=== PATIENT | male | born 1970 | race Caucasian/White ===

== ENCOUNTER 2017-08-26 15:45 | Outpatient (CLI) | payer OTHER | END 2017-08-26 15:46 | disposition home or self-care (01) | LOC: SC 15:45 | PROVIDERS: ATTEND Internal Medicine Pulmonary Disease | DX: G47.30 Sleep apnea, unspecified (principal); G47.10 Hypersomnia, unspecified; R06.83 Snoring; G47.8 Other sleep disorders | CPT/HCPCS: 99203; 99212 ==

== ENCOUNTER 2018-01-02 13:49 | Outpatient (CLI) | payer OTHER | END 2018-01-02 13:50 | disposition home or self-care (01) | LOC: SC 13:49 | PROVIDERS: ATTEND Nurse Practitioner Family | DX: G47.33 Obstructive sleep apnea (adult) (pediatric) (principal) | CPT/HCPCS: 99212; 99214 ==

== ENCOUNTER 2019-08-10 07:56 | Emergency (ER) | payer OTHER ==
--- NOTE | 2019-08-10 08:13 | ED Physician Documentation ---
PD HPI ABD PAIN - Stated complaint Stated Complaint: ABD PX - Chief complaint Chief Complaint: Abd Pain - History obtained from History obtained from: Patient - History of Present Illness Timing - onset: How many hours ago (2), Today Timing - duration: Hours (2) Timing - details: Abrupt onset (awakened from sleep this morning with upper abd pain, center to left and nausea.), Still present Quality: Aching, Sharp, Pain Location: Epigastric, LUQ Radiation: Upper back Improved by: No: Laying still Worsened by: Palpation. No: Moving, Breathing Associated symptoms: Nausea. No: Fever, Vomiting, Diarrhea, Dysuria Similar symptoms before: Has not had sx before Recently seen: Not recently seen Review of Systems Constitutional: denies: Fever, Chills, Myalgias Nose: denies: Rhinorrhea / runny nose, Congestion Throat: denies: Sore throat Cardiac: denies: Chest pain / pressure Respiratory: denies: Dyspnea, Cough GI: reports: Abdominal Pain, Nausea. denies: Vomiting, Constipation, Diarrhea : denies: Dysuria, Frequency Skin: denies: Rash Neurologic: reports: Generalized weakness. denies: Focal weakness, Numbness PD PAST MEDICAL HISTORY - Past Medical History Past Medical History: No - Past Surgical History Past Surgical History: No - Present Medications Home Medications: Ambulatory Orders Medication Instructions Recorded Confirmed Famotidine 20 mg PO DAILY #15 tablet 08/10/19 Hydrocodone/Acetaminophen [[place] 1 each PO Q6H PRN #15 tablet 08/10/19 5-325 Tablet] Ondansetron Odt [Zofran] 4 mg TL Q6H PRN #10 tablet 08/10/19 - Allergies Allergies/Adverse Reactions: Allergies Allergy/AdvReac Type Severity Reaction Status Date / Time acetaminophen [From Percocet] AdvReac Nausea Verified 08/10/19 08:05 oxycodone [From Percocet] AdvReac Nausea Verified 08/10/19 08:05 PD ED PE NORMAL - Vitals Vital signs reviewed: Yes - General General: Alert and oriented X 3, No acute distress, Well developed/nourished - HEENT HEENT: Pharynx benign - Neck Neck: Supple, no meningeal sign, No adenopathy - Cardiac Cardiac: RRR, No murmur - Respiratory Respiratory: Clear bilaterally - Abdomen Abdomen: Normal bowel sounds, Soft, Non distended, No organomegaly, Other (tender epigastric with guarding. Some tender both RUQ and LUQ. Lower abd not tender. ) - Male Male : Deferred - Rectal Rectal: Deferred - Back Back: No CVA TTP - Derm Derm: Normal color - Extremities Extremities: No tenderness to palpate, Normal ROM s pain - Neuro Neuro: Alert and oriented X 3, No motor deficit, Normal speech Results - Vitals Vitals: Vital Signs - 24 hr 08/10/19 08/10/19 08/10/19 08:03 08:28 09:11 Temperature 36.7 C 36.7 C Heart Rate 62 51 L 51 L Respiratory 20 18 16 Rate Blood Pressure 146/89 H 144/87 H 129/81 H O2 Saturation 98 97 96 08/10/19 08/10/19 11:19 12:18 Temperature Heart Rate 52 L 57 L Respiratory 14 13 Rate Blood Pressure 118/71 124/84 H O2 Saturation 98 98 Oxygen O2 Source Room air - Labs Labs: Laboratory Tests 08/10/19 08/10/19 08/10/19 08:22 08:48 08:48 WBC 9.7 RBC 5.52 Hgb 15.4 Hct 46.1 MCV 83.5 MCH 27.9 MCHC 33.4 RDW 13.3 Plt Count 282 MPV 8.7 Neut # (Auto) 6.6 Lymph # (Auto) 1.9 [place] # (Auto) 0.9 Eos # (Auto) 0.3 Baso # (Auto) 0.0 Absolute Nucleated RBC 0.00 Nucleated RBC % 0.0 Sodium 141 Potassium 3.9 Chloride 106 Carbon Dioxide 24 Anion Gap 11.0 BUN 18 Creatinine 0.8 Estimated GFR (MDRD) 103 Glucose 111 H Calcium 9.4 Total Bilirubin 0.9 AST 19 ALT 34 Alkaline Phosphatase 45 Troponin I High Sens Total Protein 8.1 Albumin 4.2 Globulin 3.9 Albumin/Globulin Ratio 1.1 Lipase 39 Urine Color YELLOW Urine Clarity HAZY Urine pH 5.5 Ur Specific [place] >=1.030 H Urine Protein NEGATIVE Urine Glucose (UA) NEGATIVE Urine Ketones NEGATIVE Urine Occult Blood TRACE-INTA Urine Nitrite NEGATIVE Urine Bilirubin NEGATIVE Urine Urobilinogen 0.2 (NORMAL) Ur Leukocyte Esterase NEGATIVE Urine RBC 0-5 Urine WBC 0-3 Ur Squamous Epith Cells MANY Squamous H Urine Crystals 6-10 Calcium Oxalate Urine Bacteria Moderate H Urine Casts 3-5 Hyaline Casts Urine Mucus Marked Strands Ur Microscopic Review INDICATED Urine Culture Comments NOT INDICATED 08/10/19 08:48 WBC RBC Hgb Hct MCV MCH MCHC RDW Plt Count MPV Neut # (Auto) Lymph # (Auto) [place] # (Auto) Eos # (Auto) Baso # (Auto) Absolute Nucleated RBC Nucleated RBC % Sodium Potassium Chloride Carbon Dioxide Anion Gap BUN Creatinine Estimated GFR (MDRD) Glucose Calcium Total Bilirubin AST ALT Alkaline Phosphatase Troponin I High Sens 6.3 Total Protein Albumin Globulin Albumin/Globulin Ratio Lipase Urine Color Urine Clarity Urine pH Ur Specific [place] Urine Protein Urine Glucose (UA) Urine Ketones Urine Occult Blood Urine Nitrite Urine Bilirubin Urine Urobilinogen Ur Leukocyte Esterase Urine RBC Urine WBC Ur Squamous Epith Cells Urine Crystals Urine Bacteria Urine Casts Urine Mucus Ur Microscopic Review Urine Culture Comments - Rads (name of study) RUQ abd U/S Radiology: Prelim report reviewed (normal), See rad report abd CT Radiology: Prelim report reviewed (no acute process), See rad report PD MEDICAL DECISION MAKING - ED course Complexity details: reviewed results, re-evaluated patient (he is feeling better with IV fluids and meds. ), considered differential (initially seemed gallbladder, but labs and U/S normal. Still could be spasm. However not clear so got CT scan as well, which was normal. ), d/w patient Departure - Departure Disposition: 01 Home, Self Care Clinical Impression: Upper abdominal pain of unknown etiology Condition: Stable Record reviewed to determine appropriate education?: Yes Instructions: ED Abdominal Pain Unkn Cause Follow-Up: Connor Burr MD [Primary Care Provider] - Prescriptions: Famotidine 20 mg PO DAILY #15 tablet Hydrocodone/Acetaminophen [[place] 5-325 Tablet] 1 each PO Q6H PRN #15 tablet PRN Reason: Pain Ondansetron Odt [Zofran] 4 mg TL Q6H PRN #10 tablet PRN Reason: Nausea / Vomiting Comments: There is no localized or acute process identified on your testing today. This may been some irritation of the stomach and so some acid reducing medicine would be appropriate for a week or 2. May have been a viral type illness and just transient for a day or so. See how you feel over the next day. Tylenol if needed for pains or fevers. Ondansetron if needed for nausea. Add hydrocodone if needed for worse pain. Recheck if not improved completely over the next couple of days and return sooner if worsening. Discharge Date/Time: 08/10/19 12:30
[2019-08-10] MEDS ORDERED: ONDANSETRON 4 MG/2 ML VIAL IVP STA (08:25)
[2019-08-10] MEDS ORDERED: HYDROmorphone 1 MG/ML CARPUJECT IVP STA (08:25)
[2019-08-10] MEDS ORDERED: KETOROLAC 15 MG/ML VIAL IVP STA (08:25)
[2019-08-10] MEDS ORDERED: SODIUM CHLORIDE 0.9% 1,000 ML IV STA (08:25)
[2019-08-10 08:33] LABS: BILIRUBIN,URINE NEGATIVE (NEGATIVE); GLUCOSE, URINE (UA) NEGATIVE (NEGATIVE); KETONES,URINE (UA) NEGATIVE (NEGATIVE); LEUKOCYTE ESTERASE, URINE NEGATIVE (NEGATIVE); NITRITE,URINE NEGATIVE (NEGATIVE); OCCULT BLOOD,URINE TRACE-INTA (NEGATIVE); PH,URINE 5.5 PH (5.0-7.5); PROTEIN,URINE NEGATIVE (NEGATIVE); UROBILINOGEN,URINE 0.2 (NORMAL) E.U./dL (NORMAL)
[2019-08-10 08:41] LABS: CLARITY,URINE HAZY (CLEAR)
[2019-08-10 08:42] LABS: BACTERIA,URINE Moderate /HPF (None Seen); CASTS, URINE 3-5 Hyaline Casts /LPF; CRYSTALS,URINE 6-10 Calcium Oxalate /LPF; MUCUS,URINE Marked Strands; RBC,URINE 0-5 /HPF (0-5); SQUAMOUS EPITHELIAL CELL,UR MANY Squamous (<= Few)
[2019-08-10 08:58] LABS: BASOPHILS % (AUTO) 0.4 %; EOSINOPHILS # (AUTO) 0.3 10^3/uL (0.0-0.7); EOSINOPHILS % (AUTO) 2.6 %; HGB - HEMOGLOBIN 15.4 g/dL (14.0-18.0); LYMPHOCYTES # (AUTO) 1.9 10^3/uL (1.5-3.5); LYMPHOCYTES % (AUTO) 19.5 %; MEAN CORPUSCULAR HEMOGLOBIN 27.9 pg (27.0-31.0); MEAN CORPUSCULAR HGB CONC 33.4 g/dL (32.0-36.0); MEAN CORPUSCULAR VOLUME 83.5 fL (80.0-94.0); MEAN PLATELET VOLUME 8.7 fL (7.4-11.4); MONOCYTES # (AUTO) 0.9 10^3/uL (0.0-1.0); MONOCYTES % (AUTO) 8.9 %; NEUTROPHILS # (AUTO) 6.6 10^3/uL (1.5-6.6); NEUTROPHILS % (AUTO) 68.1 %; PLT - PLATELET COUNT 282 10^3/uL (130-450); RED BLOOD COUNT 5.52 10^6/uL (4.70-6.10); RED CELL DISTRIBUTION WIDTH 13.3 % (12.0-15.0); WHITE BLOOD COUNT 9.7 x10^3/uL (4.8-10.8)
[2019-08-10 09:19] LABS: ALBUMIN 4.2 g/dL (3.2-5.5); ALBUMIN/GLOBULIN RATIO 1.1 (1.0-2.2); BILIRUBIN,TOTAL 0.9 mg/dL (0.2-1.0); CALCIUM 9.4 mg/dL (8.5-10.3); CREATININE 0.8 mg/dL (0.6-1.2); TOTAL PROTEIN 8.1 g/dL (6.7-8.2)
--- NOTE | 2019-08-10 10:14 | Ultrasound Report ---
Reason: abrupt upper pain 6 am Procedure Date: 08/10/2019 Accession Number: [id number] / [id number] Procedure: US - Abdomen Limited CPT Code: FULL RESULT: EXAM: ABDOMEN ULTRASOUND LIMITED, RUQ EXAM DATE: 08/10/2019 09:50 AM. CLINICAL HISTORY: Abrupt upper pain 6 am. COMPARISON: None. TECHNIQUE: Real-time scanning was performed with static images obtained. FINDINGS: Liver: The parenchyma is echogenic diffusely. No definite focal masses are identified, but evaluation is limited secondary to the echogenicity. Enlarged right liver lobe measuring 20.9 cm. Main portal vein flow: Hepatopetal. Gallbladder: Normal. No stones, wall thickening, or sonographic Yung's sign. Biliary System: CBD measures 3 mm. No intrahepatic or extrahepatic ductal dilatation. Other: Right kidney measured 11.4 cm longitudinally and appeared grossly unremarkable. Evaluation limited by available sonographic windows and patient body habitus. IMPRESSION: 1. Enlarged, fatty infiltrated liver. 2. No evidence for cholelithiasis or cholecystitis. RADIA
[2019-08-10] MEDS ORDERED: MAG HYDROX/AL HYDROX/SIMETH 30 ML UDC PO STA (10:15)
--- NOTE | 2019-08-10 10:53 | CT Report ---
Reason: right abd to back pain, onset 6 pm this morning Procedure Date: 08/10/2019 Accession Number: [id number] / [id number] Procedure: CT - Abdomen/Pelvis WO CPT Code: FULL RESULT: EXAM: CT ABDOMEN AND PELVIS EXAM DATE: 08/10/2019 10:35 AM. CLINICAL HISTORY: Right abd to back pain, onset 6 pm this morning. COMPARISONS: None. TECHNIQUE: Routine helical CT imaging was performed through the abdomen and pelvis. IV contrast: None. Enteric contrast: No. Reconstructions: Coronal and sagittal. In accordance with CT protocol optimization, one or more of the following dose reduction techniques were utilized for this exam: automated exposure control, adjustment of mA and/or KV based on patient size, or use of iterative reconstructive technique. FINDINGS: Lung Bases: 6 mm nodule right middle lobe (3, 2) Liver: Fatty infiltrated Gallbladder/Bile Ducts: Unremarkable. Spleen: Normal. Pancreas: Normal. Adrenal Glands: Normal. Kidneys: Right kidney superior pole subcentimeter density too small to characterize. No renal calcifications. No hydronephrosis. Peritoneal Cavity/Bowel: Small fat-containing umbilical hernia. Diverticulosis. No free fluid, free air or adenopathy. No masses or acute inflammatory process. The appendix is well visualized and normal. Pelvic Organs: Normal. The bladder and visualized pelvic organs are within normal limits. Vasculature: No aneurysms or other significant abnormality. Bones: No significant abnormality. Other: None. IMPRESSION: 1. No renal calcifications no hydronephrosis. 2. Right kidney subcentimeter density too small to characterize. 3. 6 mm nodule right middle lobe. Chest CT for evaluation. 4. Fatty infiltrated liver. 5. Diverticulosis. RADIA
[2019-08-10 12:19] VITALS: BP 124/84
== END 2019-08-10 12:30 | disposition home or self-care (01) ==
LOC: ED 07:56
DX: R10.10 Upper abdominal pain, unspecified (principal)
CPT/HCPCS: 36415; 74176; 76705; 80053; 81001; 83690; 84484; 85025; 93005; 96361; 96374; 99283; 99284; A9270; J1170; 81003; 87086

== ENCOUNTER 2019-09-04 05:26 | Emergency (ER) | payer OTHER ==
[2019-09-04 05:48] LABS: BASOPHILS # (AUTO) 0.1 10^3/uL (0.0-0.1); BASOPHILS % (AUTO) 0.6 %; EOSINOPHILS # (AUTO) 0.4 10^3/uL (0.0-0.7); EOSINOPHILS % (AUTO) 3.7 %; HGB - HEMOGLOBIN 15.2 g/dL (14.0-18.0); LYMPHOCYTES # (AUTO) 3.2 10^3/uL (1.5-3.5); LYMPHOCYTES % (AUTO) 29.3 %; MEAN CORPUSCULAR HEMOGLOBIN 27.7 pg (27.0-31.0); MEAN CORPUSCULAR VOLUME 83.8 fL (80.0-94.0); MEAN PLATELET VOLUME 8.5 fL (7.4-11.4); MONOCYTES # (AUTO) 1.1 10^3/uL (0.0-1.0); MONOCYTES % (AUTO) 9.8 %; NEUTROPHILS # (AUTO) 6.1 10^3/uL (1.5-6.6); NEUTROPHILS % (AUTO) 55.8 %; PLT - PLATELET COUNT 333 10^3/uL (130-450); RED BLOOD COUNT 5.49 10^6/uL (4.70-6.10); RED CELL DISTRIBUTION WIDTH 13.2 % (12.0-15.0); WHITE BLOOD COUNT 10.9 x10^3/uL (4.8-10.8)
--- NOTE | 2019-09-04 05:54 | ED Physician Documentation ---
PD HPI ABD PAIN - Stated complaint Stated Complaint: ABD PX - Chief complaint Chief Complaint: Abd Pain - History obtained from History obtained from: Patient - History of Present Illness Timing - onset: Enter time (04:30), Today Timing - details: Abrupt onset Pain level max: 10 Pain level now: 10 Quality: Pain Location: RUQ, Epigastric Radiation: Lower back, Right flank Improved by: Other (nothing) Worsened by: Other (no exacerbating factors) Associated symptoms: Nausea (mild). No: Fever, Vomiting, Diarrhea, Constipation Similar symptoms before: No diagnosis Recently seen: Emergency Dept - Additional information Additional information: T+R from this ED 08/10 for same symptoms; w/u at that time did not reveal etiology of his pain (blood tests, UA, RUQ US, and CT A/P). His pain was controlled prior to d/c, and patient says he only needed to take 2 tablets of the prescribed hydrocodone, as the pain resolved and did not recur until 4:30 this morning. He had scheduled f/u with PMD but appointment was cancelled due to family emergency w/ PMD. Review of Systems Constitutional: reports: Reviewed and negative Cardiac: reports: Reviewed and negative Respiratory: reports: Reviewed and negative GI: reports: Abdominal Pain, Nausea. denies: Vomiting, Constipation, Diarrhea : denies: Dysuria, Frequency Skin: denies: Rash PD PAST MEDICAL HISTORY - Past Medical History Past Medical History: Yes GI: GERD - Past Surgical History Past Surgical History: Yes General: Hiatal hernia repair - Allergies Allergies/Adverse Reactions: Allergies Allergy/AdvReac Type Severity Reaction Status Date / Time acetaminophen [From Percocet] AdvReac Nausea Verified 09/04/19 05:44 oxycodone [From Percocet] AdvReac Nausea Verified 09/04/19 05:44 - Social History Does the pt smoke?: No Smoking Status: Never smoker Does the pt drink ETOH?: No Does the pt have substance abuse?: No - Immunizations Immunizations are current?: Yes - POLST Patient has POLST: No PD ED PE NORMAL - Vitals Vital signs reviewed: Yes - General General: Alert and oriented X 3, Well developed/nourished, Other (obvious moderate-severe painful distress) - HEENT HEENT: Moist mucous membranes - Cardiac Cardiac: RRR, No murmur - Respiratory Respiratory: No respiratory distress - Abdomen Abdomen: Normal bowel sounds, Soft, Non distended - Back Back: No CVA TTP - Derm Derm: Normal color, Warm and dry, No rash PD ED PE EXPANDED - Abdomen Abdomen: Tender to palpation, RUQ, Epigastric, Other (mild epigastric TTP, moderate RUQ and right flank TTP. no rebound or guarding) Results - Vitals Vitals: Vital Signs - 24 hr 09/04/19 09/04/19 09/04/19 05:30 07:42 07:52 Temperature 36.7 C Heart Rate 64 55 L Respiratory 18 18 Rate Blood Pressure 162/87 H 140/78 H O2 Saturation 98 99 09/04/19 09/04/19 10:00 11:13 Temperature Heart Rate 51 L 52 L Respiratory 16 16 Rate Blood Pressure 121/79 113/59 L O2 Saturation 96 99 Oxygen O2 Source Room air - Labs Labs: Laboratory Tests 09/04/19 09/04/19 09/04/19 05:40 05:40 07:20 WBC 10.9 H RBC 5.49 Hgb 15.2 Hct 46.0 MCV 83.8 MCH 27.7 MCHC 33.0 RDW 13.2 Plt Count 333 MPV 8.5 Neut # (Auto) 6.1 Lymph # (Auto) 3.2 [place] # (Auto) 1.1 H Eos # (Auto) 0.4 Baso # (Auto) 0.1 Absolute Nucleated RBC 0.00 Nucleated RBC % 0.0 Sodium 142 Potassium 3.8 Chloride 107 Carbon Dioxide 26 Anion Gap 9.0 BUN 15 Creatinine 0.8 Estimated GFR (MDRD) 103 Glucose 127 H Calcium 8.9 Total Bilirubin 0.4 AST 19 ALT 37 Alkaline Phosphatase 44 Total Protein 7.7 Albumin 4.0 Globulin 3.7 Albumin/Globulin Ratio 1.1 Lipase 56 H Urine Color YELLOW Urine Clarity CLEAR Urine pH 5.5 Ur Specific [place] >=1.030 H Urine Protein NEGATIVE Urine Glucose (UA) NEGATIVE Urine Ketones NEGATIVE Urine Occult Blood NEGATIVE Urine Nitrite NEGATIVE Urine Bilirubin NEGATIVE Urine Urobilinogen 0.2 (NORMAL) Ur Leukocyte Esterase NEGATIVE Ur Microscopic Review NOT INDICATED Urine Culture Comments NOT INDICATED PD MEDICAL DECISION MAKING - ED course Complexity details: reviewed old records, reviewed results, re-evaluated patient, considered differential, d/w patient ED course: NAD on reevaluation and patient reported improvement after 1mg IV dilaudid but still had some residual discomfort. Care of patient turned over to Dr. Kc pending test results at end of my shift Departure - Departure Disposition: 01 Home, Self Care Clinical Impression: Biliary colic Condition: Good Instructions: ED Abdominal Pain Unkn Cause Follow-Up: Connor Burr MD [Primary Care Provider] - Within 1 week Erickson Smyth MD [Provider Admit Priv/Credential] - Comments: Return if you worsen. Follow a low-fat diet. Follow-up with your doctor for further care. You should have a HIDA scan as well. This can be arranged with your doctor. You will likely need to follow-up with general surgery as well. I spoke with Dr. Smyth today. Discharge Date/Time: 09/04/19 11:21
[2019-09-04] MEDS ORDERED: HYDROmorphone 1 MG/ML CARPUJECT IVP STA (05:56)
[2019-09-04] MEDS ORDERED: ONDANSETRON 4 MG/2 ML VIAL IVP STA (05:56)
[2019-09-04] MEDS ORDERED: SODIUM CHLORIDE 0.9% 1,000 ML IV STA (05:56)
[2019-09-04 06:01] LABS: ALBUMIN/GLOBULIN RATIO 1.1 (1.0-2.2); BILIRUBIN,TOTAL 0.4 mg/dL (0.2-1.0); CALCIUM 8.9 mg/dL (8.5-10.3); CREATININE 0.8 mg/dL (0.6-1.2); TOTAL PROTEIN 7.7 g/dL (6.7-8.2)
[2019-09-04 07:26] LABS: BILIRUBIN,URINE NEGATIVE (NEGATIVE); GLUCOSE, URINE (UA) NEGATIVE (NEGATIVE); KETONES,URINE (UA) NEGATIVE (NEGATIVE); LEUKOCYTE ESTERASE, URINE NEGATIVE (NEGATIVE); NITRITE,URINE NEGATIVE (NEGATIVE); OCCULT BLOOD,URINE NEGATIVE (NEGATIVE); PH,URINE 5.5 PH (5.0-7.5); PROTEIN,URINE NEGATIVE (NEGATIVE); UROBILINOGEN,URINE 0.2 (NORMAL) E.U./dL (NORMAL)
[2019-09-04 07:27] LABS: CLARITY,URINE CLEAR (CLEAR)
[2019-09-04] MEDS ORDERED: PANTOPRAZOLE 40 MG VIAL IVP STA (07:57)
[2019-09-04] MEDS ORDERED: KETOROLAC 30 MG/ML VIAL IVP STA (07:57)
[2019-09-04] MEDS ORDERED: SODIUM CHLORIDE 0.9% 1,000 ML IV ONE (07:57)
--- NOTE | 2019-09-04 08:43 | ED Physician Documentation ---
PD HPI ABD PAIN - Stated complaint Stated Complaint: ABD PX - Chief complaint Chief Complaint: Abd Pain - History obtained from History obtained from: Patient, Family - Additional information Additional information: See Dr. Acosta' H&P for full history and physical on this patient. Signed out to me awaiting pain control, repeat ultrasound and repeat evaluation. PD PAST MEDICAL HISTORY - Past Medical History Past Medical History: Yes GI: GERD - Past Surgical History Past Surgical History: Yes General: Hiatal hernia repair - Allergies Allergies/Adverse Reactions: Allergies Allergy/AdvReac Type Severity Reaction Status Date / Time acetaminophen [From Percocet] AdvReac Nausea Verified 09/04/19 05:44 oxycodone [From Percocet] AdvReac Nausea Verified 09/04/19 05:44 - Social History Does the pt smoke?: No Smoking Status: Never smoker Does the pt drink ETOH?: No Does the pt have substance abuse?: No - Immunizations Immunizations are current?: Yes - POLST Patient has POLST: No PD ED PE NORMAL - Vitals Vital signs reviewed: Yes - General General: Alert and oriented X 3, No acute distress - HEENT HEENT: Moist mucous membranes - Neck Neck: Supple, no meningeal sign - Cardiac Cardiac: RRR - Respiratory Respiratory: No respiratory distress, Clear bilaterally - Abdomen Abdomen: Soft, Non distended, Other (TTP RUQ, neg yao's sign) - Derm Derm: Warm and dry - Neuro Neuro: Alert and oriented X 3 - Psych Psych: Normal mood, Normal affect Results - Vitals Vitals: Vital Signs - 24 hr 09/04/19 09/04/19 09/04/19 05:30 07:42 07:52 Temperature 36.7 C Heart Rate 64 55 L Respiratory 18 18 Rate Blood Pressure 162/87 H 140/78 H O2 Saturation 98 99 09/04/19 09/04/19 10:00 11:13 Temperature Heart Rate 51 L 52 L Respiratory 16 16 Rate Blood Pressure 121/79 113/59 L O2 Saturation 96 99 Oxygen O2 Source Room air - Labs Labs: Laboratory Tests 09/04/19 09/04/19 09/04/19 05:40 05:40 07:20 WBC 10.9 H RBC 5.49 Hgb 15.2 Hct 46.0 MCV 83.8 MCH 27.7 MCHC 33.0 RDW 13.2 Plt Count 333 MPV 8.5 Neut # (Auto) 6.1 Lymph # (Auto) 3.2 [place] # (Auto) 1.1 H Eos # (Auto) 0.4 Baso # (Auto) 0.1 Absolute Nucleated RBC 0.00 Nucleated RBC % 0.0 Sodium 142 Potassium 3.8 Chloride 107 Carbon Dioxide 26 Anion Gap 9.0 BUN 15 Creatinine 0.8 Estimated GFR (MDRD) 103 Glucose 127 H Calcium 8.9 Total Bilirubin 0.4 AST 19 ALT 37 Alkaline Phosphatase 44 Total Protein 7.7 Albumin 4.0 Globulin 3.7 Albumin/Globulin Ratio 1.1 Lipase 56 H Urine Color YELLOW Urine Clarity CLEAR Urine pH 5.5 Ur Specific [place] >=1.030 H Urine Protein NEGATIVE Urine Glucose (UA) NEGATIVE Urine Ketones NEGATIVE Urine Occult Blood NEGATIVE Urine Nitrite NEGATIVE Urine Bilirubin NEGATIVE Urine Urobilinogen 0.2 (NORMAL) Ur Leukocyte Esterase NEGATIVE Ur Microscopic Review NOT INDICATED Urine Culture Comments NOT INDICATED - Rads (name of study) RUQ US Radiology: Prelim report reviewed, EMP read contemporaneously, See rad report (Moderately enlarged echogenic liver, consistent with fatty infiltration, similar to previous study. Mild to moderate gallbladder wall thickening, new from prior study, possibly fat related, no localized tenderness or gallstone. Mildly dilated common bile duct. Distal common bile ducts dilatation cannot be excluded. Contrast-enhanced abdomen CT may be useful for further assessment, as clinically indicated.) PD MEDICAL DECISION MAKING - ED course Complexity details: reviewed results, re-evaluated patient, considered differential, d/w patient ED course: 49-year-old male presents the emergency department with right upper quadrant abdominal pain. States feels similar to his prior diagnosis of biliary colic. Symptoms resolved with Protonix and Toradol. Discussed ultrasound and laboratory findings with Dr. Smyth, general surgery on-call who recommends an outpatient HIDA scan and follow-up in clinic. Patient's pain is resolved in the emergency department. Abdomen is soft, nontender nondistended. Patient and family counseled regarding signs and symptoms for which I believe and urgent re- evaluation would be necessary. Patient with good understanding of and agreement to plan and is comfortable going home at this time This document was made in part using voice recognition software. While efforts are made to proofread this document, sound alike and grammatical errors may occur. Departure - Departure Disposition: 01 Home, Self Care Clinical Impression: Biliary colic Condition: Good Instructions: ED Abdominal Pain Unkn Cause Follow-Up: Connor Burr MD [Primary Care Provider] - Within 1 week Erickson Smyth MD [Provider Admit Priv/Credential] - Comments: Return if you worsen. Follow a low-fat diet. Follow-up with your doctor for further care. You should have a HIDA scan as well. This can be arranged with your doctor. You will likely need to follow-up with general surgery as well. I spoke with Dr. Smyth today. Discharge Date/Time: 09/04/19 11:21
--- NOTE | 2019-09-04 10:01 | Ultrasound Report ---
Reason: RUQ abd pain Procedure Date: 09/04/2019 Accession Number: [id number] / [id number] Procedure: US - Abdomen Limited CPT Code: Final Report FULL RESULT: EXAM: ABDOMEN ULTRASOUND LIMITED, RUQ EXAM DATE: 09/04/2019 09:34 AM. CLINICAL HISTORY: Right upper quadrant abdominal pain in a 49-year-old male. COMPARISON: ABDOMEN LIMITED 08/10/2019 9:[address] ABDOMEN/PELVIS W/O 08/10/2019 10:28 AM. TECHNIQUE: Real-time scanning was performed on an emergent basis, with static images obtained. FINDINGS: Technically limited study by patient body habitus and overlying bowel gas. Liver: Marked increase in liver echogenicity. Normal contour. No mass or cyst. Moderately enlarged liver length at 22.7 cm (previously 20.9 cm). Main portal vein flow: Hepatopetal. Gallbladder: Mild to moderate gallbladder wall thickening at 7 mm. No gallstones, or sonographic Yung's sign. Biliary System: CBD measures 7.2 mm. Mildly dilated common bile duct, not present previously. Limited visualization due to overlying bowel gas. No intrahepatic bile duct dilatation. Pancreas: Obscured by bowel gas. Right kidney: 13 cm length. Grossly normal. No nephrolithiasis or hydronephrosis. Other: No free fluid or lymphadenopathy in the visualized abdomen. IMPRESSION: Moderately enlarged echogenic liver, consistent with fatty infiltration, similar to previous study. Mild to moderate gallbladder wall thickening, new from prior study, possibly fat related, no localized tenderness or gallstone. Mildly dilated common bile duct. Distal common bile ducts dilatation cannot be excluded. Contrast-enhanced abdomen CT may be useful for further assessment, as clinically indicated. RADIA
[2019-09-04 11:13] VITALS: BP 113/59
== END 2019-09-04 11:21 | disposition home or self-care (01) ==
LOC: ED 05:26
DX: K80.50 Calculus of bile duct without cholangitis or cholecystitis without obstruction (principal)
CPT/HCPCS: 36415; 76705; 80053; 81003; 83690; 85025; 96361; 96374; 96375; 99283; 99284; J1170; 81001; 87086

== ENCOUNTER 2019-12-12 01:22 | Emergency (ER) | payer OTHER ==
--- NOTE | 2019-12-12 01:40 | ED Physician Documentation ---
PD HPI ABD PAIN - Stated complaint Stated Complaint: ABD PX - Chief complaint Chief Complaint: Abd Pain - History obtained from History obtained from: Patient - History of Present Illness Timing - onset: Enter time (22:00) Timing - details: Abrupt onset, Constant, Waxing and waning Pain level now: 6 Quality: Pain Location: RUQ, Epigastric Radiation: Right flank Improved by: Other (nothing) Worsened by: Other (no exacerbating factors) Associated symptoms: Nausea, Vomiting, Constipation. No: Fever, Diarrhea Similar symptoms before: Diagnosis (suspected biliary colic) Recently seen: Not recently seen - Additional information Additional information: c/o ruq abd pain radiating around right flank to right back. patient says same symptoms as before when I had gallbladder attacks. onset 10 pm tonight while at home at rest. was evaluated twice in this ED for this and no clear diagnosis although biliary colic was supected. he followed up with pmd as recommended, was referred to general surgery. HIDA performed with low EF (22%), although he says the surgeon expressed lack of confidence with accuracy of HIDA scans. after discussion of options for treatment, patient elected to decline surgery and try dietary restrictions. when pain came on this evening, he took tablet of [place] but vomited this up, took second dose and again vomited this up. this norco was from rx provided 2 months ago from this ED and these were the first two tablets he has taken; he had not had any episodes of this pain between last ED visit and tonight Review of Systems Constitutional: reports: Reviewed and negative Cardiac: reports: Reviewed and negative Respiratory: reports: Reviewed and negative GI: reports: Abdominal Pain, Nausea, Vomiting. denies: Diarrhea : denies: Dysuria Skin: denies: Rash PD PAST MEDICAL HISTORY - Past Medical History Past Medical History: No GI: GERD - Past Surgical History Past Surgical History: Yes General: Hiatal hernia repair - Allergies Allergies/Adverse Reactions: Allergies Allergy/AdvReac Type Severity Reaction Status Date / Time acetaminophen [From Percocet] AdvReac Nausea Verified 09/04/19 05:44 oxycodone [From Percocet] AdvReac Nausea Verified 09/04/19 05:44 - Social History Does the pt smoke?: No Smoking Status: Never smoker Does the pt drink ETOH?: No Does the pt have substance abuse?: No - Immunizations Immunizations are current?: Yes - POLST Patient has POLST: No PD ED PE NORMAL - Vitals Vital signs reviewed: Yes - General General: Alert and oriented X 3, No acute distress, Well developed/nourished - HEENT HEENT: Moist mucous membranes - Neck Neck: Supple, no meningeal sign - Cardiac Cardiac: RRR, No murmur - Respiratory Respiratory: No respiratory distress, Clear bilaterally - Abdomen Abdomen: Soft, Non distended, Other (mild TTP RUQ without rebound or guarding) - Back Back: No CVA TTP - Derm Derm: Normal color, Warm and dry, No rash Results - Vitals Vitals: Vital Signs - 24 hr 12/12/19 12/12/19 12/12/19 01:27 02:07 03:31 Temperature 36.3 C L Heart Rate 50 L 49 L 53 L Respiratory 14 19 14 Rate Blood Pressure 155/100 H 159/87 H 155/85 H O2 Saturation 98 97 97 12/12/19 04:27 Temperature 36.9 C Heart Rate 55 L Respiratory 16 Rate Blood Pressure 138/75 H O2 Saturation 99 Oxygen O2 Source Room air - Labs Labs: Laboratory Tests 12/12/19 12/12/19 01:35 01:35 WBC 12.0 H RBC 5.40 Hgb 15.0 Hct 44.9 MCV 83.1 MCH 27.8 MCHC 33.4 RDW 13.6 Plt Count 303 MPV 8.5 Neut # (Auto) 9.3 H Lymph # (Auto) 1.6 [place] # (Auto) 0.9 Eos # (Auto) 0.1 Baso # (Auto) 0.1 Absolute Nucleated RBC 0.00 Nucleated RBC % 0.0 Sodium 139 Potassium 4.1 Chloride 104 Carbon Dioxide 23 Anion Gap 12.0 BUN 17 Creatinine 0.8 Estimated GFR (MDRD) 103 Glucose 147 H Calcium 8.9 Total Bilirubin 0.9 AST 23 ALT 42 Alkaline Phosphatase 42 Total Protein 7.9 Albumin 4.3 Globulin 3.6 Albumin/Globulin Ratio 1.2 Lipase 34 PD MEDICAL DECISION MAKING - ED course Complexity details: reviewed old records, reviewed results, re-evaluated patient, considered differential, d/w patient ED course: reports resolution of symptoms after iv fluids, zofran, toradol, dilaudid Departure - Departure Disposition: 01 Home, Self Care Clinical Impression: Abdominal pain Qualifiers: Abdominal location: right upper quadrant Qualified Code(s): R10.11 - Right upper quadrant pain Condition: Good Instructions: ED Abdominal Pain Gallstone Poss Follow-Up: Connor Burr MD [Primary Care Provider] - Discharge Date/Time: 12/12/19 04:27
[2019-12-12 01:48] LABS: BASOPHILS # (AUTO) 0.1 10^3/uL (0.0-0.1); BASOPHILS % (AUTO) 0.4 %; EOSINOPHILS # (AUTO) 0.1 10^3/uL (0.0-0.7); EOSINOPHILS % (AUTO) 1.1 %; LYMPHOCYTES # (AUTO) 1.6 10^3/uL (1.5-3.5); LYMPHOCYTES % (AUTO) 13.1 %; MEAN CORPUSCULAR HEMOGLOBIN 27.8 pg (27.0-31.0); MEAN CORPUSCULAR HGB CONC 33.4 g/dL (32.0-36.0); MEAN CORPUSCULAR VOLUME 83.1 fL (80.0-94.0); MEAN PLATELET VOLUME 8.5 fL (7.4-11.4); MONOCYTES # (AUTO) 0.9 10^3/uL (0.0-1.0); MONOCYTES % (AUTO) 7.1 %; NEUTROPHILS # (AUTO) 9.3 10^3/uL (1.5-6.6); NEUTROPHILS % (AUTO) 77.5 %; PLT - PLATELET COUNT 303 10^3/uL (130-450); RED CELL DISTRIBUTION WIDTH 13.6 % (12.0-15.0)
[2019-12-12] MEDS ORDERED: ONDANSETRON 4 MG/2 ML VIAL IVP STA (01:54)
[2019-12-12] MEDS ORDERED: KETOROLAC 30 MG/ML VIAL IVP STA (01:54)
[2019-12-12] MEDS ORDERED: HYDROmorphone 1 MG/ML CARPUJECT IVP STA (01:54)
[2019-12-12] MEDS ORDERED: SODIUM CHLORIDE 0.9% 1,000 ML IV STA (01:54)
[2019-12-12 01:58] LABS: ALBUMIN 4.3 g/dL (3.2-5.5); ALBUMIN/GLOBULIN RATIO 1.2 (1.0-2.2); BILIRUBIN,TOTAL 0.9 mg/dL (0.2-1.0); CALCIUM 8.9 mg/dL (8.5-10.3); CREATININE 0.8 mg/dL (0.6-1.2); TOTAL PROTEIN 7.9 g/dL (6.7-8.2)
[2019-12-12 04:27] VITALS: BP 138/75
== END 2019-12-12 04:27 | disposition home or self-care (01) ==
LOC: ED 01:22
DX: R10.11 Right upper quadrant pain (principal); R11.2 Nausea with vomiting, unspecified
CPT/HCPCS: 36415; 80053; 83690; 85025; 96361; 96374; 99283; 99284; J1170